=== PATIENT | male | born 1940 | race Hispanic/Latino ===

== ENCOUNTER 2025-03-18 21:23 | Inpatient (IN) | payer SELFPAY ==
[~2025-03-18] VITALS: Ht 170.2 cm; Wt 81.6 kg
[2025-03-18] MEDS: IPRATROPIUM BROMIDE 0.02% 2.5 ML NEB NEB ONE (22:15)
[2025-03-18] MEDS: ALBUTEROL SULF 0.083% NEB SOLN 3 ML NEB NEB STA (22:15)
[2025-03-18 22:19] VITALS: PULSE 112; RESP 28; O2SAT 97
[2025-03-18] MEDS ORDERED: ALBUTEROL SULF 0.083% NEB SOLN 3 ML NEB ONE (22:25)
[2025-03-18 22:38] LABS: EST GLOMERULAR FILTRATION RATE 21.0 ML/MIN (>=60)
[2025-03-18 22:39] LABS: BASOPHILS % 0.6 % (0.0-1.0); EOSINOPHILS % 7.4 % (0.0-6.0); LYMPHOCYTES % 19.3 % (18.0-39.1); MONOCYTES % 10.9 % (4.4-11.3); NEUTROPHILS % 60.6 % (38.7-80.0); RED CELL DISTRIBUTION WIDTH 13.1 % (11.7-14.4)
[2025-03-18] MEDS: METHYLPREDNISOLONE SOD SUCC 125 MG/2ML VIAL IV ONE (23:25)
[2025-03-18] MEDS ORDERED: ONDANSETRON HCL INJ 2MG/ML 2ML 2 MG/ML VIAL IV PRN (23:30)
[2025-03-19] VITALS (15 sets, daily range): BP systolic 145–165; BP diastolic 68–85; PULSE 88–115; RESP 17–24; TEMP 97.7–98.8; O2SAT 97–100
[2025-03-19] MEDS: METHYLPREDNISOLONE SOD SUCC 40 MG/ML VIAL 1ML IV SCH
[2025-03-19] MEDS: ALBUTEROL/IPRATROPIUM 3 ML NEB NEB SCH (02:22)
[2025-03-19] MEDS ORDERED: AMLODIPINE BES2.5 MG PO (06:16)
[2025-03-19] MEDS ORDERED: TELMISARTAN80 MG PO (06:16)
[2025-03-19] MEDS ORDERED: PREDNISONE20 MG PO (06:16)
[2025-03-19 06:48] LABS: BASOPHILS % 0.2 % (0.0-1.0); EOSINOPHILS % 0.1 % (0.0-6.0); LYMPHOCYTES % 5.8 % (18.0-39.1); MONOCYTES % 0.5 % (4.4-11.3); NEUTROPHILS % 92.1 % (38.7-80.0); RED CELL DISTRIBUTION WIDTH 13.0 % (11.7-14.4)
[2025-03-19 07:27] LABS: EST GLOMERULAR FILTRATION RATE 21.0 ML/MIN (>=60)
[2025-03-19] MEDS ORDERED: HYDRALAZINE HCL 20 MG/ML VIAL IV PRN (23:00)
[2025-03-19] MEDS ORDERED: BISACODYL 10 MG SUPP PR PRN (23:00)
[2025-03-20] VITALS (12 sets, daily range): BP systolic 145–179; BP diastolic 71–86; PULSE 103–117; RESP 18–23; TEMP 97.5–98.3; O2SAT 94–100
[2025-03-20] MEDS: HEPARIN SOD (PORCINE) 5,000 UNIT/ML VIAL SC SCH (00:08)
[2025-03-20 06:08] LABS: BASOPHILS % 0.2 % (0.0-1.0); EOSINOPHILS % 0.0 % (0.0-6.0); LYMPHOCYTES % 3.9 % (18.0-39.1); MONOCYTES % 2.6 % (4.4-11.3); NEUTROPHILS % 92.4 % (38.7-80.0); RED CELL DISTRIBUTION WIDTH 13.2 % (11.7-14.4)
[2025-03-20 06:47] LABS: EST GLOMERULAR FILTRATION RATE 22.0 ML/MIN (>=60)
[2025-03-20 07:05] LABS: PHOSPHORUS 3.1 MG/DL (2.3-4.7)
[2025-03-20] MEDS: DOCUSATE SODIUM 100 MG CAP PO SCH (08:20)
[2025-03-20] MEDS: NIFEDIPINE CR 30 MG TAB PO SCH (08:21)
[2025-03-20] MEDS: SENNOSIDES 8.6 MG TAB PO SCH (08:21)
[2025-03-20 10:19] LABS: LYMPHOCYTES % (MANUAL) 4 % (19-48); MONOCYTES % (MANUAL) 2 % (3.4-9.0); NEUTROPHILS % (MANUAL) 94 % (40-74); PLATELET ESTIMATE ADEQUATE; PLATELET MORPHOLOGY COMMENT NORMAL; RBC MORPHOLOGY COMMENT NORMAL
[2025-03-20] MEDS: ACETAMINOPHEN 325 MG TAB PO PRN (13:42)
[2025-03-20] MEDS ORDERED: HYDROCODONE/APAP 5MG-325MG TAB PO PRN (18:00)
[2025-03-20] MEDS: Morphine 2mg Syringe 2 MG/ML SYR IV PRN (18:06)
[2025-03-21] VITALS (16 sets, daily range): BP systolic 120–164; BP diastolic 57–87; PULSE 72–112; RESP 15–22; TEMP 97.7–98.6; O2SAT 95–100
[2025-03-21 05:48] LABS: BASOPHILS % 0.1 % (0.0-1.0); EOSINOPHILS % 0.0 % (0.0-6.0); LYMPHOCYTES % 3.7 % (18.0-39.1); MONOCYTES % 2.0 % (4.4-11.3); NEUTROPHILS % 93.2 % (38.7-80.0); RED CELL DISTRIBUTION WIDTH 13.5 % (11.7-14.4)
[2025-03-21 06:18] LABS: EST GLOMERULAR FILTRATION RATE 22.0 ML/MIN (>=60)
[2025-03-21] MEDS: SODIUM CHLORIDE 0.9% 1000ML 1,000 ML IV ONE (07:57)
[2025-03-21] MEDS: Vancomycin IV 1 GM in SODIUM CHLORIDE 0.9% 250ML 250 ML IV SCH (08:04)
[2025-03-21 09:29] LABS: ABG BASE EXCESS -10.0 mmol/L (-2 - 3); ABG HCO3 16 mmol/L (22-26); ABG OXYGEN SATURATION 74.0 % (95-98); ABG PCO2 35 mmHg (35-45); ABG PH 7.28 (7.35-7.45); ABG PO2 44 mmHg (80-105); ABG TCO2 17
[2025-03-21 09:43] LABS: LYMPHOCYTES % (MANUAL) 3 % (19-48); MONOCYTES % (MANUAL) 2 % (3.4-9.0); NEUTROPHILS % (MANUAL) 95 % (40-74); PLATELET ESTIMATE ADEQUATE
[2025-03-21 09:44] LABS: PLATELET MORPHOLOGY COMMENT NORMAL; RBC MORPHOLOGY COMMENT NORMAL
[2025-03-21] MEDS: SODIUM CHLORIDE 0.9% 1000ML 1,000 ML IV STA (15:33)
[2025-03-21 17:34] LABS: LEUKOCYTE ESTERASE ,URINE MODERATE (NEGATIVE); PROTEIN,URINE DIPSTICK 2+ (NEGATIVE); URINE UROBILINOGEN 0.2 mg/dL (0.2 - 1)
[2025-03-21 17:49] LABS: WBC,URINE (MAN) 21-50 /HPF (0-5)
[2025-03-21 19:08] LABS: CORONAVIRUS COVID-19 AG NEGATIVE (NEGATIVE)
[2025-03-21] MEDS: SODIUM BICARBONATE 8.4% VIAL 50 ML in SODIUM CHLORIDE 0.45% 1,000 ML IV SCH (20:01)
[2025-03-21 20:58] LABS: CREATININE,URINE RANDOM 20.64 mg/dL (63-166); TOTAL PROTEIN, URINE 56.9 mg/dL (1-14)
[2025-03-22] VITALS (22 sets, daily range): BP systolic 113–169; BP diastolic 57–98; PULSE 89–112; RESP 16–23; TEMP 97.4–98.7; O2SAT 95–100
[2025-03-22] MEDS: LACTATED RINGER'S 500 ML IV STA (06:23)
[2025-03-22 06:29] LABS: BASOPHILS % 0.1 % (0.0-1.0); EOSINOPHILS % 0.0 % (0.0-6.0); LYMPHOCYTES % 5.0 % (18.0-39.1); MONOCYTES % 5.0 % (4.4-11.3); NEUTROPHILS % 88.5 % (38.7-80.0); RED CELL DISTRIBUTION WIDTH 13.5 % (11.7-14.4)
[2025-03-22 07:00] LABS: EST GLOMERULAR FILTRATION RATE 25.0 ML/MIN (>=60)
[2025-03-22] MEDS: SODIUM CHLORIDE 0.9% 1000ML 1,000 ML ONE (09:22)
[2025-03-22] MEDS: SODIUM CHLORIDE FLUSH 10 ML SYR INJ PRN (09:39)
[2025-03-22] MEDS: BUDESONIDE 0.5MG/2 ML NEB INH SCH (12:30)
[2025-03-22] MEDS: LACTOBACILLUS ACIDOPHILUS CAPSULE PO SCH (15:08)
[2025-03-22] MEDS: IPRATROPIUM BROMIDE 0.02% 2.5 ML NEB NEB PRN (19:48)
[2025-03-22] MEDS: LACTATED RINGER'S 1,000 ML INJ SCH (20:47)
[2025-03-23] VITALS (10 sets, daily range): BP systolic 158–165; BP diastolic 83–91; PULSE 10–115; RESP 17–20; TEMP 97.7–98.4; O2SAT 96–99
[2025-03-23 08:16] LABS: BASOPHILS % 0.2 % (0.0-1.0); EOSINOPHILS % 0.5 % (0.0-6.0); LYMPHOCYTES % 20.9 % (18.0-39.1); MONOCYTES % 11.7 % (4.4-11.3); NEUTROPHILS % 65.3 % (38.7-80.0); RED CELL DISTRIBUTION WIDTH 13.4 % (11.7-14.4)
[2025-03-23 08:30] LABS: EST GLOMERULAR FILTRATION RATE 29.0 ML/MIN (>=60)
[2025-03-23] MEDS: POLYETHYLENE GLYCOL 3350 17 GM PACK PO PRN (22:19)
[2025-03-24] VITALS (10 sets, daily range): BP systolic 146–172; BP diastolic 81–91; PULSE 89–108; RESP 18–22; TEMP 97.7–98.6; O2SAT 95–100
[2025-03-24 06:16] LABS: BASOPHILS % 0.2 % (0.0-1.0); EOSINOPHILS % 3.0 % (0.0-6.0); LYMPHOCYTES % 22.8 % (18.0-39.1); MONOCYTES % 10.9 % (4.4-11.3); NEUTROPHILS % 59.9 % (38.7-80.0); RED CELL DISTRIBUTION WIDTH 13.1 % (11.7-14.4)
[2025-03-24 06:33] LABS: EST GLOMERULAR FILTRATION RATE 31.0 ML/MIN (>=60)
[2025-03-25] VITALS: BP 130/75; PULSE 109; RESP 17; TEMP 98.5; O2SAT 97
[2025-03-25 04:00] VITALS: BP 117/60; PULSE 99; RESP 18; TEMP 98.5; O2SAT 96
[2025-03-25 06:16] LABS: BASOPHILS % 0.3 % (0.0-1.0); EOSINOPHILS % 4.9 % (0.0-6.0); LYMPHOCYTES % 19.5 % (18.0-39.1); MONOCYTES % 8.0 % (4.4-11.3); NEUTROPHILS % 63.2 % (38.7-80.0); RED CELL DISTRIBUTION WIDTH 13.0 % (11.7-14.4)
[2025-03-25 06:47] LABS: EST GLOMERULAR FILTRATION RATE 28.0 ML/MIN (>=60)
[2025-03-25 07:24] VITALS: PULSE 96; RESP 20; O2SAT 98
[2025-03-25 07:56] VITALS: BP 122/57; PULSE 96; RESP 18; TEMP 98; O2SAT 100
[2025-03-25 11:17] VITALS: BP 153/77; PULSE 102; RESP 18; TEMP 98; O2SAT 100
[2025-03-25] MEDS ORDERED: CIPRO250 MG PO (12:43)
[2025-03-25] MEDS ORDERED: NIFEDIPINE ER30 M1 PO (12:43)
[2025-03-25] MEDS ORDERED: PHENAZOPYRIDIN100 MG PO (12:43)
[2025-03-25] MEDS ORDERED: VENTOLIN HFA18 GM INH (12:50)
== END 2025-03-25 15:08 | disposition home or self-care (01) | DRG 872 ==
LOC: ER 22:08 → ERHOLD 23:24 → MED/SURG2 03-19 03:14 → OBSVTOIN 03-20 16:22 → ICU 03-21 19:31 → MED/SURG2 03-22 15:10
PROVIDERS: ADMIT Internal Medicine; ATTEND Internal Medicine
PROC: 0T9B70Z Drainage of Bladder with Drainage Device, Via Natural or Artificial Opening (ICD-10-PCS; principal; 2025-03-20)
DX: A41.9 Sepsis, unspecified organism (principal); N17.9 Acute kidney failure, unspecified; E87.20 Acidosis, unspecified; E87.29 Other acidosis; N13.8 Other obstructive and reflux uropathy; N30.01 Acute cystitis with hematuria; J44.1 Chronic obstructive pulmonary disease with (acute) exacerbation; R65.20 Severe sepsis without septic shock; K59.00 Constipation, unspecified; N18.9 Chronic kidney disease, unspecified; D72.829 Elevated white blood cell count, unspecified; R00.0 Tachycardia, unspecified; R33.9 Retention of urine, unspecified; N35.919 Unspecified urethral stricture, male, unspecified site; N40.1 Benign prostatic hyperplasia with lower urinary tract symptoms; E66.9 Obesity, unspecified; D64.9 Anemia, unspecified; J40 Bronchitis, not specified as acute or chronic; I12.9 Hypertensive chronic kidney disease with stage 1 through stage 4 chronic kidney disease, or unspecified chronic kidney disease; Z11.52 Encounter for screening for COVID-19; Z79.52 Long term (current) use of systemic steroids
CPT/HCPCS: 36415; 71045; 71250; 74176; 76770; 80048; 80053; 80202; 81001; 82550; 82570; 82805; 82948; 83036; 83605; 83735; 83880; 84100; 84156; 84484; 85025; 85730; 87040; 87086; 93005; 94640; 94799; 99252; 99284; G0378; J0692; J0696; J1644; J2270; J2919; J3373; J7030; J7050; J7120